=== PATIENT | female | born 1965 | race Caucasian/White ===

== ENCOUNTER 2023-01-26 17:01 | Outpatient (CLI) | payer OTHER, SELFPAY ==
--- NOTE | ~2023-01-26 | XR_ITS ---
EXAMINATION: XR cervical spine 4-5V DATE: 01/26/2023 17:24 INDICATION: Right-sided neck pain. TECHNIQUE: 5 views of cervical spine including flexion and extension views were obtained. COMPARISON: None. FINDINGS: There is 6 degrees levocurvature of cervical spine. There is no abnormal motion with flexio n or extension. Vertebral body heights and intervertebral disc heights are normal. The C7 transverse processes are elongated. There is mild facet joint osteoarthritis at multiple levels. IMPRESSION: 1. Cervical facet joint osteoarthritis. Reviewed, dictated and finalized at location A.
== END 2023-01-26 17:02 | disposition home or self-care (01) ==
LOC: ANHIMG 17:10
PROVIDERS: PCP Internal Medicine Cardiovascular Disease; Visit Provider Internal Medicine Rheumatology
DX: M54.2 Cervicalgia (principal); M85.88 Other specified disorders of bone density and structure, other site
CPT/HCPCS: 72050

== ENCOUNTER 2023-06-09 09:01 | Outpatient (CLI) | payer OTHER, SELFPAY ==
--- NOTE | 2023-06-09 10:45 | NEURO_ITS ---
Impression: # Diabetic complains of pain/numbness of right hand. # Normal Nerve Conduction Study. No Carpal Tunnel Syndrome or ulnar neuropathy. # Normal needle/EMG exam including proximal muscles. # Clinical correlation recommended. Nerve Conduction Studies Anti Sensory Summary Table Stim Site NR Peak (ms) P-T Amp (?V) Site1 Site2 Delta-P (ms) Dist (cm) Tristian (m/s) Right Median Anti Sensory (2-3nd Digit) Wrist 3.1 58.7 Wrist 2-3nd Digit 3.1 14.0 45 Wrist 3.0 73.6 Wrist 2-3nd Digit 3.1 14.0 45 Right Radial Anti Sensory (Base 1st Digit) Wrist 2.1 31.4 Wrist Base 1st Digit 2.1 0.0 Right Ulnar Anti Sensory (5th Digit) Wrist 2.3 57.0 Wrist 5th Digit 2.3 14.0 61 Motor Summary Table Stim Site NR Onset (ms) O-P Amp (mV) Site1 Site2 Delta-0 (ms) Dist (cm) Tristian (m/s) Right Median Motor (Abd Poll Brev) Wrist 3.1 6.2 Elbow Wrist 4.5 26.0 58 Elbow 7.6 5.0 Right Ulnar Motor (Abd Dig Minimi) Wrist 2.2 7.9 A Elbow Wrist 4.8 29.0 60 A Elbow 7.0 4.9 F Wave Studies NR F-Lat (ms) L-R F-Lat (ms) Right Median (Mrkrs) (Abd Poll Brev) 25.70 Right Ulnar (Mrkrs) (Abd Dig Min) 24.79 EMG Side Muscle Nerve Root Ins Act Fibs Amp Dur Recrt Comment Right 1stDorInt Ulnar C8-T1 Nml Nml Nml Nml Nml Right Ext Indicis Radial (Post Int) C7-8 Nml Nml Nml Nml Nml Right Ext Digitorum Radial (Post Int) C7-8 Nml Nml Nml Nml Nml Right BrachioRad Radial C5-6 Nml Nml Nml Nml Nml Right PronatorTeres Median C6-7 Nml Nml Nml Nml Nml Right Abd Poll Brev Median C8-T1 Nml Nml Nml Nml Nml Right ABD Dig Min Ulnar C8-T1 Nml Nml Nml Nml Nml MTDD
== END 2023-06-09 09:02 | disposition home or self-care (01) ==
LOC: ANHNEURO 09:03
PROVIDERS: PCP Internal Medicine Cardiovascular Disease; Visit Provider Plastic Surgery
DX: R20.0 Anesthesia of skin (principal); M25.511 Pain in right shoulder
CPT/HCPCS: 95886; 95909